=== PATIENT | male | born 1970 | race Two or more races ===

== ENCOUNTER 2022-09-25 08:55 | Outpatient (CLI) | payer OTHER ==
[2022-09-25 09:23] LABS: BASOPHILS # (AUTO) 0.1 10^3/uL (0.0-0.1); BASOPHILS % (AUTO) 0.9 %; EOSINOPHILS # (AUTO) 0.1 10^3/uL (0.0-0.7); EOSINOPHILS % (AUTO) 1.2 %; HCT - HEMATOCRIT 47.4 % (42.0-52.0); HGB - HEMOGLOBIN 16.8 g/dL (14.0-18.0); LYMPHOCYTES # (AUTO) 1.7 10^3/uL (1.5-3.5); LYMPHOCYTES % (AUTO) 20.7 %; MEAN CORPUSCULAR HEMOGLOBIN 30.7 pg (27.0-31.0); MEAN CORPUSCULAR HGB CONC 35.4 g/dL (32.0-36.0); MEAN CORPUSCULAR VOLUME 86.5 fL (80.0-94.0); MEAN PLATELET VOLUME 10.3 fL (7.4-11.4); MONOCYTES # (AUTO) 0.9 10^3/uL (0.0-1.0); MONOCYTES % (AUTO) 10.7 %; NEUTROPHILS # (AUTO) 5.3 10^3/uL (1.5-6.6); NEUTROPHILS % (AUTO) 66.3 %; PLT - PLATELET COUNT 205 10^3/uL (130-450); RED BLOOD COUNT 5.48 10^6/uL (4.70-6.10); RED CELL DISTRIBUTION WIDTH 12.4 % (12.0-15.0)
[2022-09-25 09:37] LABS: ALBUMIN 4.6 g/dL (3.2-5.5); ALBUMIN/GLOBULIN RATIO 1.4 (1.0-2.2); BILIRUBIN,TOTAL 1.9 mg/dL (0.2-1.0); CALCIUM 9.3 mg/dL (8.5-10.3); CREATININE 1.5 mg/dL (0.6-1.2); TOTAL PROTEIN 7.8 g/dL (6.7-8.2)
== END 2022-09-25 08:56 | disposition home or self-care (01) ==
LOC: LAB 08:55
PROVIDERS: ATTEND Physician Assistant
DX: R10.9 Unspecified abdominal pain (principal)
CPT/HCPCS: 36415; 80053; 83690; 85025

== ENCOUNTER 2023-01-30 12:07 | Day surgery (SDC) | payer OTHER ==
[2023-01-30] MEDS ORDERED: LACTATED RINGERS 1,000 ML IV ONE ×2 (12:53→14:22)
--- NOTE | 2023-01-30 13:31 | ANESTHESIA ---
Pre-Anesthesia VS, & Labs - Diagnosis Screening and GERD - Procedure EGD and colonoscopy Vital Signs: Temp Pulse Resp BP Pulse Ox O2 Flow Rate 36.3 C L 65 17 124/84 H 96 01/30/23 12:35 01/30/23 12:35 01/30/23 12:35 01/30/23 12:35 01/30/23 12:35 Height: 5 ft 6 in Weight (kg): 83.6 kg Body Mass Index: 29.7 BMI Classification: Overweight - NPO >8 hours Home Medications and Allergies Home Medications: Ambulatory Orders Pantoprazole [Protonix] 40 mg PO DAILY 01/29/23 Testosterone Cypionate [Depo-Testosterone] 100 mg IM OAW 01/29/23 Pantoprazole [Protonix] 40 mg PO DAILY 01/29/23 Testosterone Cypionate [Depo-Testosterone] 100 mg IM OAW 01/29/23 Allergies/Adverse Reactions: Allergies Allergy/AdvReac Type Severity Reaction Status Date / Time No Known Drug Allergies Allergy Verified 01/29/23 13:44 Anes History & Medical History - Anesthetic History Family history of Anesthesia Complications: Denies Family history of Malignant Hyperthermia: Denies - Medical History Cardiovascular: reports: High cholesterol Pulmonary: reports: Other (snores) Gastrointestinal: reports: GERD Urinary: reports: None Neuro: reports: None Musculoskeletal: reports: None Endocrine/Autoimmune: reports: None Blood Disorders: reports: None Skin: reports: None Smoking Status: Never smoker Psychosocial: reports: Cannabis History of Cancer?: No Exam General: Alert, Oriented x3, Cooperative, No acute distress Dental: WNL Mouth Openin Fingerbreadth Neck Mobility: Normal Mallampati classification: II Thyromental Distance: 4-6 cm Mental/Cognitive Status: Alert/Oriented X3, Normal for patient Plan Anesthesia Type: General, Total IV Consent for Procedure(s) Verified and Reviewed: Yes Code Status: Attempt Resuscitation ASA classification: 2-Mild systemic disease Is this case an emergency?: No
[2023-01-30] MEDS ORDERED: LIDOCAINE-MPF 2% 5 ML VIAL ONE (13:41)
[2023-01-30] MEDS ORDERED: PROPOFOL 500 MG/50 ML 500 MG/50 ML VIAL ONE (13:41)
[2023-01-30 15:06] VITALS: BP 105/67
--- NOTE | 2023-01-31 08:00 | ANESTHESIA POST OP EVALUATION ---
Anesthesia Post Eval - Post Anesthesia Eval Vitals: Last Vital Signs Temp 36.8 C 01/30/23 15:05 Pulse 57 L 01/30/23 15:05 Resp 14 01/30/23 15:05 BP 105/67 01/30/23 15:05 Pulse Ox 100 01/30/23 15:05 O2 Flow Rate CV Function Including HR & BP: Stable Pain Control: Satisfactory Nausea & Vomiting: Negative Mental Status: Baseline Respiratory Status: Airway Patent Hydration Status: Satisfactory Anesthesia Complications: None
== END 2023-01-30 12:08 | disposition home or self-care (01) ==
LOC: SDS 12:07
PROVIDERS: ATTEND Surgery
PROC: 0DB48ZX Excision of Esophagogastric Junction, Via Natural or Artificial Opening Endoscopic, Diagnostic (ICD-10-PCS; principal; 2023-01-30 13:15)
PROC: 0DB78ZX Excision of Stomach, Pylorus, Via Natural or Artificial Opening Endoscopic, Diagnostic (ICD-10-PCS; 2023-01-30 13:15)
DX: Z12.11 Encounter for screening for malignant neoplasm of colon (principal); K25.9 Gastric ulcer, unspecified as acute or chronic, without hemorrhage or perforation; K44.9 Diaphragmatic hernia without obstruction or gangrene; K22.89 Other specified disease of esophagus; K60.2 Anal fissure, unspecified; K64.8 Other hemorrhoids; K57.30 Diverticulosis of large intestine without perforation or abscess without bleeding; K21.9 Gastro-esophageal reflux disease without esophagitis
CPT/HCPCS: 43239; 45378; J7120

== ENCOUNTER 2024-05-24 08:46 | Day surgery (SDC) | payer OTHER ==
[2024-05-24] MEDS: LACTATED RINGERS 1,000 ML IV ONE (09:00)
[2024-05-24] MEDS ORDERED: LIDOCAINE-MPF 2% 5 ML VIAL ONE (09:57)
[2024-05-24] MEDS ORDERED: PROPOFOL 200 MG/20 ML VIAL IVP ONE (09:57)
--- NOTE | 2024-05-24 10:11 | ANESTHESIA ---
Pre-Anesthesia VS, & Labs - Diagnosis GERD - Procedure EGD Vital Signs: Temp Pulse Resp BP Pulse Ox O2 Flow Rate 36.4 C L 74 15 112/78 99 05/24/24 09:00 05/24/24 09:00 05/24/24 09:00 05/24/24 09:00 05/24/24 09:00 Height: 5 ft 6 in Weight (kg): 85.6 kg Body Mass Index: 30.4 BMI Classification: Obese - NPO >8 hours Home Medications and Allergies Pantoprazole [Protonix] 40 mg PO DAILY 01/29/23 Testosterone Cypionate [Depo-Testosterone] 100 mg IM OAW 01/29/23 Allergies/Adverse Reactions: Allergies Allergy/AdvReac Type Severity Reaction Status Date / Time No Known Drug Allergies Allergy Verified 01/29/23 13:44 Anes History & Medical History - Anesthetic History Anesthesia Complications: reports: No previous complications - Medical History Cardiovascular: reports: High cholesterol Pulmonary: reports: None Gastrointestinal: reports: GERD, Ulcers, Diverticulitis Urinary: reports: None Neuro: reports: None Musculoskeletal: reports: None Endocrine/Autoimmune: reports: None Blood Disorders: reports: None Skin: reports: None Smoking Status: Never smoker - Surgical History General: reports: Colonoscopy, EGD Exam General: Alert, Oriented x3 Dental: WNL Mouth Opening: Greater than 4 Fingerbreadths Neck Mobility: Normal Mallampati classification: II Thyromental Distance: greater than 6 cm Respiratory: Lungs clear Cardiovascular: Regular rate Plan Anesthesia Type: Total IV Consent for Procedure(s) Verified and Reviewed: Yes Code Status: Attempt Resuscitation ASA classification: 2-Mild systemic disease Is this case an emergency?: No
[2024-05-24] MEDS ORDERED: LIDOCAINE TOPICAL 4% 50 ML BOTTLE ONE (10:13)
[2024-05-24] MEDS ORDERED: MIDAZOLAM 2 MG/2 ML VIAL ONE (10:17)
[2024-05-24] MEDS ORDERED: fentaNYL 100 MCG/2 ML VIAL ONE (10:18)
[2024-05-24] MEDS: LACTATED RINGERS 500 ML IV ONE (10:34)
[2024-05-24 11:29] VITALS: BP 108/80; O2SAT 99
--- NOTE | 2024-05-24 15:03 | ANESTHESIA POST OP EVALUATION ---
Anesthesia Post Eval - Post Anesthesia Eval Vitals: Last Vital Signs Temp 36.3 C L 05/24/24 11:07 Pulse 60 05/24/24 11:07 Resp 16 05/24/24 11:07 BP 108/80 05/24/24 11:07 Pulse Ox 99 05/24/24 11:07 O2 Flow Rate CV Function Including HR & BP: Stable Pain Control: Satisfactory Nausea & Vomiting: Negative Mental Status: Baseline Respiratory Status: Airway Patent Hydration Status: Satisfactory Anesthesia Complications: None
== END 2024-05-24 08:47 | disposition home or self-care (01) ==
LOC: SDS 08:46
PROVIDERS: ATTEND Surgery
PROC: 0DB38ZX Excision of Lower Esophagus, Via Natural or Artificial Opening Endoscopic, Diagnostic (ICD-10-PCS; principal; 2024-05-24 09:45)
DX: K21.9 Gastro-esophageal reflux disease without esophagitis (principal); Z87.19 Personal history of other diseases of the digestive system; K44.9 Diaphragmatic hernia without obstruction or gangrene; E66.9 Obesity, unspecified; Z68.30 Body mass index [BMI] 30.0-30.9, adult
CPT/HCPCS: 43239; J7120